=== PATIENT | female | born 1965 | race Caucasian/White ===

== ENCOUNTER 2022-08-24 09:11 | Day surgery (SDC) | payer OTHER ==
[~2022-08-24] VITALS: Ht 152.4 cm; Wt 67.8 kg
[~2022-08-24 09:11] MED LIST: ATOR1TAB19 PO; LOSA25TA13 PO; NS 1,000 ML IV ONE; propofoL 200 MG/20 ML VIAL As Ordered ONE
[2022-08-24 11:30] VITALS: BP 135/74
== END 2022-08-24 11:35 | disposition home or self-care (01) ==
LOC: M OPP 09:11
PROVIDERS: ATTEND Internal Medicine Gastroenterology
DX: Z12.11 Encounter for screening for malignant neoplasm of colon (principal); Z80.0 Family history of malignant neoplasm of digestive organs; D12.6 Benign neoplasm of colon, unspecified; K57.30 Diverticulosis of large intestine without perforation or abscess without bleeding; K64.4 Residual hemorrhoidal skin tags; K64.8 Other hemorrhoids; E78.00 Pure hypercholesterolemia, unspecified; I25.110 Atherosclerotic heart disease of native coronary artery with unstable angina pectoris; Z79.02 Long term (current) use of antithrombotics/antiplatelets; Z79.899 Other long term (current) drug therapy; Z80.3 Family history of malignant neoplasm of breast; Z83.71 Family history of colonic polyps; Z80.7 Family history of other malignant neoplasms of lymphoid, hematopoietic and related tissues